=== PATIENT | male | born 1980 | race Caucasian/White ===

== ENCOUNTER 2023-04-28 13:27 | Emergency (ER) | payer OTHER ==
[2023-04-28 13:48] VITALS: BP 149/92; PULSE 66; RESP 16; TEMP 99.9; BMI 34.4
[2023-04-28] MEDS ORDERED: LIDOCAINE 5% TOPICAL PATCH TP ONE (13:57)
[2023-04-28] MEDS ORDERED: KETOROLAC TROMETHAMINE 30 MG/1 ML VIAL IM ONE (13:57)
[2023-04-28] MEDS ORDERED: LIDOCAINE 5% TOPICAL PATCH ONE (13:59)
[2023-04-28] MEDS ORDERED: KETOROLAC TROMETHAMINE 30 MG/1 ML VIAL ONE (13:59)
[2023-04-28] MEDS ORDERED: LIDOCAINE PATCH REMOVAL MC SCH (22:00)
== END 2023-04-28 15:15 | disposition home or self-care (01) ==
LOC: FER 13:27
PROC: 3E0233Z Introduction of Anti-inflammatory into Muscle, Percutaneous Approach (ICD-10-PCS; principal; 2023-04-28)
DX: M54.50 Low back pain, unspecified (principal); M62.830 Muscle spasm of back
CPT/HCPCS: 81003; 87086; 99284-25